=== PATIENT | female | born 1945 | race Asian ===

== ENCOUNTER → 2016-12-25 | Outpatient (REF) | payer MEDICARE ==
[~2016-12-25] MED LIST: CALC-136 PO; CALCIUM PO; COLLCAP2 PO; DOCU10ELUD PO; HYDR50TA8 OR; LIDO5DIS TD; LUTE6CAP2 PO; PERCOCET PO; TRAM50TA2; TRAM50TA2 OR; TYLE325T5 PO; VITAMINB PO; VITAMINC PO; Vitamin D3 PO; [UNRECOGNIZED DRUG - OTHER] PO
[2016-12-25 11:32] LABS: MEAN CORPUSCULAR HGB CONC 33.7 g/dl (32.0-36.5); WHITE BLOOD COUNT 8.6 K/mm3 (4.0-10.0)
[2016-12-25 12:01] LABS: ALBUMIN 3.8 GM/DL (3.2-5.2); ALBUMIN/GLOBULIN RATIO 1.15 (1.00-1.93); ALKALINE PHOSPHATASE 83 U/L (45-117); ALT/SGPT 33 U/L (12-78); ANION GAP 7 MEQ/L (8-16); AST/SGOT 15 U/L (15-37); BILIRUBIN,TOTAL 0.4 MG/DL (0.2-1.0); BLOOD UREA NITROGEN 15 MG/DL (7-18); CALCIUM LEVEL 8.6 MG/DL (8.8-10.2); CARBON DIOXIDE LEVEL 30 MEQ/L (21-32); CHLORIDE LEVEL 105 MEQ/L (98-107); CHOLESTEROL LEVEL 227 MG/DL (<200); CREATININE FOR GFR 0.52 MG/DL (0.55-1.02); GLOMERULAR FILTRATION RATE > 60.0 (>39); GLUCOSE, FASTING 75 MG/DL (83-110); POTASSIUM SERUM 4.2 MEQ/L (3.5-5.1); SODIUM LEVEL 142 MEQ/L (136-145); TOTAL PROTEIN 7.1 GM/DL (6.4-8.2); TRIGLYCERIDES LEVEL 89 MG/DL (<150)
== END ==
LOC: M SFHCCLAY 09:14
PROVIDERS: ATTEND Family Medicine
DX: E78.00 Pure hypercholesterolemia, unspecified (principal); Z85.3 Personal history of malignant neoplasm of breast

== ENCOUNTER → 2017-01-20 | Outpatient (REF) | payer MEDICARE | LOC: M SFHCCLAY 11:31 | PROVIDERS: ATTEND Family Medicine | DX: J45.909 Unspecified asthma, uncomplicated (principal); E78.00 Pure hypercholesterolemia, unspecified; M54.2 Cervicalgia; R53.83 Other fatigue ==

== ENCOUNTER → 2017-08-23 | Outpatient (CLI) | payer MEDICARE | LOC: M WHC 09:48 | DX: Z12.31 Encounter for screening mammogram for malignant neoplasm of breast (principal) | CPT/HCPCS: 77067 ==

== ENCOUNTER 2018-02-03 07:50 | Day surgery (SDC) | payer MEDICARE ==
[2018-02-03] MEDS: NS 1,000 ML IV (08:27)
[2018-02-03] MEDS ORDERED: PROPOFOL 200 MG/20 ML VIAL As Ordered (08:51)
[2018-02-03] MEDS ORDERED: LIDOCAINE 2% INJ 100 MG/5 ML SDV (FOR ANES.) As Ordered (08:51)
== END 2018-02-03 10:21 | disposition home or self-care (01) ==
LOC: M OPP 07:50
DX: Z12.11 Encounter for screening for malignant neoplasm of colon (principal); R01.1 Cardiac murmur, unspecified; L40.9 Psoriasis, unspecified; J45.909 Unspecified asthma, uncomplicated; Z85.3 Personal history of malignant neoplasm of breast; Z92.3 Personal history of irradiation; R12 Heartburn; Z78.0 Asymptomatic menopausal state; Z88.8 Allergy status to other drugs, medicaments and biological substances; Z79.899 Other long term (current) drug therapy
CPT/HCPCS: G0121

== ENCOUNTER → 2018-06-03 | Outpatient (CLI) | payer BC, MEDICARE | LOC: M CLY 14:57 | DX: M54.2 Cervicalgia (principal) | CPT/HCPCS: 72050 ==

== ENCOUNTER 2018-10-17 12:00 | Emergency (ER) | payer BC, MEDICARE ==
[~2018-10-17] VITALS: Ht 149.9 cm; Wt 50.0 kg
[~2018-10-17 12:00] MED LIST changes: +CITRTAB19 PO; +COLLCAP PO; +OMEG1CAP16 PO; +PROAAER10 INH; +PROBCAP4 PO; +VITA500T3 PO
[2018-10-17 13:47] LABS: HEMATOCRIT 40.2 % (36.0-47.0); HEMOGLOBIN 13.5 g/dl (12.0-15.5); MEAN CORPUSCULAR HGB CONC 33.6 g/dl (32.0-36.5); MEAN CORPUSCULAR VOLUME 92.4 fl (80.0-96.0); RED BLOOD COUNT 4.35 10^6/uL (4.00-5.40); WHITE BLOOD COUNT 12.8 10^3/uL (4.0-10.0)
[2018-10-17 13:48] LABS: BASO # 0.1 10^3/uL (0.0-0.2); BASO % 0.5 % (0.0-1.0); EOS # 0.1 10^3/uL (0.0-0.50); EOS % 0.9 % (0.0-3.0); LYMPH # 3.1 10^3/uL (1.5-4.5); LYMPH % 24.6 % (24.0-44.0); MONO # 1.1 10^3/uL (0.0-0.8); MONO % 8.5 % (0.0-5.0); NEUTROPHILS # 8.3 10^3/uL (1.8-7.7); NEUTROPHILS % 65.2 % (36.0-66.0); PLATELET COUNT, AUTOMATED 159 10^3/uL (150-450)
[2018-10-17 14:14] LABS: BLOOD UREA NITROGEN 22 MG/DL (7-18); C REACTIVE PROTEIN QUANTITATIV 8.12 MG/DL (0.00-0.30); CALCIUM LEVEL 8.6 MG/DL (8.8-10.2); CARBON DIOXIDE LEVEL 27 MEQ/L (21-32); CHLORIDE LEVEL 107 MEQ/L (98-107); CREATININE FOR GFR 0.51 MG/DL (0.55-1.30); GLOMERULAR FILTRATION RATE > 60.0 (>39); GLUCOSE, FASTING 82 MG/DL (70-100); POTASSIUM SERUM 3.9 MEQ/L (3.5-5.1); SODIUM LEVEL 142 MEQ/L (136-145)
--- NOTE | 2018-10-17 14:16 | REP ---
LEFT ELBOW: Four views of left elbow are performed. No fracture, dislocation, or intrinsic bone disease is seen. I do not see a significant joint effusion. There is soft tissue swelling posteriorly. Electronically Signed by Shant Hernandez MD 10/18/2018 10:14 A
--- NOTE | 2018-10-17 14:21 | REP ---
Left upper extremity duplex venous ultrasound: History: Left upper extremity pain and swelling. Findings: The left internal jugular, axillary, brachial, basilic, and cephalic veins are anechoic and compressible in the left upper extremity. Color flow imaging is homogeneous. Spectral Doppler interrogation is unremarkable. There is no evidence of left upper extremity venous thrombosis. Impression: Negative left upper extremity duplex venous ultrasound. No evidence of venous thrombosis. Electronically Signed by Rusty Davenport MD 10/17/2018 02:11 P
[2018-10-17] MEDS ORDERED: CLEO300C2 PO (14:29)
[2018-10-17 14:36] VITALS: BP 145/65
[2018-10-17 15:27] LABS: ERYTHROCYTE SEDIMENTATION RATE 30 mm/hr (0-30)
== END 2018-10-17 14:41 | disposition home or self-care (01) ==
LOC: M ED 12:00
DX: L03.114 Cellulitis of left upper limb (principal); M54.9 Dorsalgia, unspecified; Z85.3 Personal history of malignant neoplasm of breast; Z88.8 Allergy status to other drugs, medicaments and biological substances; Z79.899 Other long term (current) drug therapy

== ENCOUNTER → 2019-04-11 | Outpatient (REF) | payer MEDICARE ==
[~2019-04-11] MED LIST changes: +CLEO300C2 PO; +CYAN500T8 PO; -DOCU10ELUD PO; +DOCU5LIQ PO; +OXYC1TAB23 PO; -PERCOCET PO; -VITA500T3 PO
== END ==
LOC: M SFHCWAGY 11:21
PROVIDERS: ATTEND Nurse Practitioner Family
DX: Z12.4 Encounter for screening for malignant neoplasm of cervix (principal); N95.2 Postmenopausal atrophic vaginitis

== ENCOUNTER → 2019-04-11 | Outpatient (CLI) | payer MEDICARE ==
--- NOTE | 2019-04-11 13:20 | REP ---
BILATERAL SCREENING DIGITAL MAMMOGRAM WITH 3D TOMOSYNTHESIS: There are no palpable abnormalities or other breast complaints. The the patient states she had a clinical breast examination March,. The the patient states she performs self-breast examinations zero times per year. The patient had left breast cancer at age 65. The Tyrer Cuzick Score is: NA. Comparison is the 01/10/2014. The breasts are heterogeneously dense, which could obscure small masses. There is no dominant mass, micro calcific cluster or architectural distortion that would indicate malignancy. There are no additional findings on 3D tomosynthesiss. There is no change from the prior study. Impression: BIRADS/ACR category 1 mammogram. Negative. Recommendation: Routine annual screening mammography. Because of the increased breast density, annual adjunctive breast MRI in addition to screening mammography is recommended. These can be performed at alternating six month intervals. This mammogram was interpreted with the aid of a FDA approved computer-aided detection system. A. Negative mammogram reports should not delay biopsy if a dominant or clinically suspicious mass is present. B. Not all breast cancers are identified by mammography or tomosynthesis. C. Adenosis and dense breasts may obscure an underlying neoplasm. Patient letter M1 dense breasts. Electronically Signed by Shant Mendes MD 04/11/2019 01:11 P
--- NOTE | 2019-04-14 15:26 | DEXA ---
AP SPINE L1 - L4 0.843 -2.8 -1.1 LT FEMUR TOTAL 0.685 -2.6 -0.9 LT NECK 0.640 -2.9 -1.0 RT FEMUR TOTAL 0.666 -2.7 -1.1 RT NECK 0.625 -3.0 -1.2 TOTAL BODY TOTAL OTHER COMMENTS: There is osteoporosis of the spine and hips. The density of the spine has decreased 10.1% since 06/22/2005. The density of the left hip has decreased 14.6% since 06/22/2005. The density of the right hip has decreased 16.2% since 06/22/2005. FOLLOW-UP: Recommendation for the next bone density exam: 2 years. DANIELLE
== END ==
LOC: M WHC 10:40
PROVIDERS: ATTEND Nurse Practitioner Family
DX: Z12.31 Encounter for screening mammogram for malignant neoplasm of breast (principal); N95.9 Unspecified menopausal and perimenopausal disorder; Z85.3 Personal history of malignant neoplasm of breast

== ENCOUNTER → 2019-04-26 | Outpatient (REF) | payer MEDICARE ==
[2019-04-26 17:17] LABS: HEMATOCRIT 40.8 % (36.0-47.0); HEMOGLOBIN 13.5 g/dl (12.0-15.5); MEAN CORPUSCULAR HEMOGLOBIN 31.3 pg (27.0-33.0); MEAN CORPUSCULAR HGB CONC 33.1 g/dl (32.0-36.5); MEAN CORPUSCULAR VOLUME 94.7 fl (80.0-96.0); PLATELET COUNT, AUTOMATED 175 10^3/uL (150-450); RED BLOOD COUNT 4.31 10^6/uL (4.00-5.40); WHITE BLOOD COUNT 7.4 10^3/uL (4.0-10.0)
[2019-04-26 17:39] LABS: ALBUMIN 3.6 GM/DL (3.2-5.2); ALT/SGPT 32 U/L (12-78); BILIRUBIN,TOTAL 0.3 MG/DL (0.2-1.0); BLOOD UREA NITROGEN 23 MG/DL (7-18); C REACTIVE PROTEIN QUANTITATIV < 0.30 MG/DL (0.00-0.30); CALCIUM LEVEL 9.4 MG/DL (8.8-10.2); CARBON DIOXIDE LEVEL 31 MEQ/L (21-32); CHLORIDE LEVEL 103 MEQ/L (98-107); CHOLESTEROL LEVEL 217 MG/DL (<200); CHOLESTEROL RISK RATIO 2.972 (<5); CREATININE FOR GFR 0.66 MG/DL (0.55-1.30); GLOMERULAR FILTRATION RATE > 60.0 (>39); GLUCOSE, FASTING 101 MG/DL (70-100); HDL CHOLESTEROL 73 MG/DL (>40); LDL CHOLESTEROL 95 MG/DL (<100); NON-HDL-C 144 MG/DL; POTASSIUM SERUM 3.9 MEQ/L (3.5-5.1); SODIUM LEVEL 142 MEQ/L (136-145); THYROID STIMULATING HORMONE 0.552 uIU/ML (0.358-3.740); TOTAL PROTEIN 6.9 GM/DL (6.4-8.2); TRIGLYCERIDES LEVEL 244 MG/DL (<150)
[2019-04-26 17:40] LABS: TOTAL 25(OH) VITAMIN D 60.5 NG/ML (30.0-100.0)
[2019-04-26 17:50] LABS: ERYTHROCYTE SEDIMENTATION RATE 16 mm/hr (0-30)
[2019-04-29 00:06] LABS: ANA (HEP2) Negative (.); CYCLIC CITRULLINATED PEPTIDE 16 units (0-19)
== END ==
LOC: M SFHCCLAY 13:42
PROVIDERS: ATTEND Family Medicine
DX: B35.1 Tinea unguium (principal); M81.0 Age-related osteoporosis without current pathological fracture; E78.00 Pure hypercholesterolemia, unspecified; J45.20 Mild intermittent asthma, uncomplicated; M62.838 Other muscle spasm; M25.50 Pain in unspecified joint

== ENCOUNTER → 2020-11-19 | Outpatient (CLI) | payer OTHER ==
[~2020-11-19] MED LIST changes: +CYAN500T14 PO; -CYAN500T8 PO
--- NOTE | 2020-11-19 15:34 | REP ---
INDICATION: M54.31, M54.32, RIGHT AND LEFT SCIATICA PAIN. COMPARISON: None. TECHNIQUE: Plain film of the lumbar spine includes AP lateral and oblique views. FINDINGS: There is fusion of L5 and S1 for S1 spondylolisthesis. The study does not include a true lateral film at the level of the fusion. There is no evidence of hardware loosening or hardware failure. No evidence of fracture. IMPRESSION: L5-S1 fusion with hardware for spondylolisthesis. <Electronically signed by Marcos Chapman > 11/19/20 [id number]
--- NOTE | 2020-11-20 03:04 | REP ---
INDICATION: M25.561, PAIN RIGHT KNEE COMPARISON: None. TECHNIQUE: AP, lateral, bilateral oblique and sunrise views. FINDINGS: The osseous structures and joint spaces are intact and age-appropriate. There is no evidence for acute fracture or dislocation. Relatively mild subchondral sclerosis along the medial tibial plateau and posterior patella with associated elements of mild joint space narrowing are noted. Lateral view demonstrates fraying and small calcification along the insertion to quadriceps tendon. No obvious acute fracture or dislocation. No definite effusion. 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 IMPRESSION: Relatively mild arthritic changes given the patient's age. No acute fracture or dislocation. <Electronically signed by Tye Mendoza > 11/20/20 [id number]
== END ==
LOC: M CLY 14:24
PROVIDERS: ATTEND Family Medicine
DX: M54.31 Sciatica, right side (principal); M54.32 Sciatica, left side; M25.561 Pain in right knee; Z98.1 Arthrodesis status; M43.16 Spondylolisthesis, lumbar region

== ENCOUNTER → 2020-11-19 | Outpatient (REF) | payer OTHER ==
[2020-11-20 11:30] LABS: BASO # 0.1 10^3/uL (0.0-0.2); EOS # 0.2 10^3/uL (0.0-0.5); EOS % 2.1 % (0.0-3.0); HEMATOCRIT 43.3 % (36.0-47.0); HEMOGLOBIN 14.1 g/dl (12.0-15.5); LYMPH # 2.9 10^3/uL (1.5-5.0); LYMPH % 31.9 % (24.0-44.0); MEAN CORPUSCULAR HEMOGLOBIN 30.9 pg (27.0-33.0); MEAN CORPUSCULAR HGB CONC 32.6 g/dl (32.0-36.5); MONO # 0.7 10^3/uL (0.0-0.8); MONO % 7.7 % (2.0-8.0); NEUTROPHILS # 5.2 10^3/uL (1.5-8.5); NEUTROPHILS % 57.1 % (36.0-66.0); PLATELET COUNT, AUTOMATED 196 10^3/uL (150-450); RED BLOOD COUNT 4.56 10^6/uL (4.00-5.40); WHITE BLOOD COUNT 9.2 10^3/uL (4.0-10.0)
[2020-11-20 12:13] LABS: ALT/SGPT 60 U/L (12-78); BILIRUBIN,TOTAL 0.3 MG/DL (0.2-1.0); BLOOD UREA NITROGEN 21 MG/DL (7-18); CALCIUM LEVEL 9.6 MG/DL (8.8-10.2); CARBON DIOXIDE LEVEL 31 MEQ/L (21-32); CHLORIDE LEVEL 106 MEQ/L (98-107); CHOLESTEROL LEVEL 244 MG/DL (<200); CHOLESTEROL RISK RATIO 2.939 (<5); CREATININE FOR GFR 0.55 MG/DL (0.55-1.30); GLOMERULAR FILTRATION RATE > 60.0 (>39); GLUCOSE, FASTING 79 MG/DL (70-100); HDL CHOLESTEROL 83 MG/DL (>40); LDL CHOLESTEROL 138 MG/DL (<100); NON-HDL-C 161 MG/DL; POTASSIUM SERUM 5.1 MEQ/L (3.5-5.1); SODIUM LEVEL 140 MEQ/L (136-145); TOTAL PROTEIN 7.7 GM/DL (6.4-8.2); TRIGLYCERIDES LEVEL 116 MG/DL (<150)
[2020-11-20 12:14] LABS: ALBUMIN 4.1 GM/DL (3.2-5.2)
[2020-11-20 12:16] LABS: VITAMIN B12 LEVEL 870 PG/ML (247-911)
== END ==
LOC: M SFHCCLAY 14:14
PROVIDERS: ATTEND Family Medicine
DX: M54.31 Sciatica, right side (principal); M54.32 Sciatica, left side; G89.29 Other chronic pain; M25.561 Pain in right knee; M81.0 Age-related osteoporosis without current pathological fracture; E78.00 Pure hypercholesterolemia, unspecified

== ENCOUNTER → 2021-05-08 | Outpatient (CLI) | payer OTHER ==
--- NOTE | 2021-05-08 12:07 | REPMRS ---
Patient History The patient states she had a clinical breast exam in 2020. Family history of breast cancer at age 62 in sister, prostate cancer at age 50 or over in brother. Malignant lumpectomy of the left breast, November 10, 2010. Radiation therapy. No breast complaints today Patient signed the MRS sheet Both Moderna vaccines were in the right arm, not sure of dates Priors on PACS Patient Identification Verified Digital Woman Screen Mammo: May 08, 2021 - Exam #: [id number] Bilateral CC and MLO view(s) were taken. Technologist: Sadia Rivera, Technologist Prior study comparison: April 11, 2019, bilateral digital woman screen mammo performed at [facility]. August 23, 2017, digital woman screen mammo performed at [facility]. FINDINGS: The breast tissue is heterogeneously dense. This may lower the sensitivity of mammography. Screening. This patient?s lifetime risk for the development of invasive breast cancer can?t be calculated due to her age (less than 20 or greater than 85 years) or a prior history of in situ or invasive breast cancer. Digital screening (2D) mammography was performed bilaterally. Additionally, breast tomosynthesis (3D mammography) was performed bilaterally in the CC and MLO projections. Today's exam was compared to the prior exam/exams. By history, the patient has no complaints of a palpable breast abnormality or other significant breast complaints. The Volpara volumetric breast density category is C, the breasts are heterogenously dense which may obscure small masses. The patient is status post left lumpectomy/chemo radiation therapy due to breast carcinoma. The breasts are unchanged in size and shape. There are no bebe-areas of internal architectural distortion. There are no bebe-soft tissue densities or areas of spiculation. There is unchanged post radiation skin thickening. IMPRESSION: BI-RADS Category 2- Benign Findings. There is no evidence of malignant alteration of the breasts. Routine bilateral screening mammogram recommended at its regularly scheduled annual interval. This mammogram was read with the assistance of [employer],an FDA approved computer aided detection system for mammography. Negative x-ray reports should not delay surgical consultation if a dominant or clinically suspicious mass is present. Not all breast cancers can be identified by mammography. Therefore, we recommend that you continue to perform regular breast self-examination and physical examination and then promptly contact your physician of any concerns or changes. Adenosis and dense breasts may obscure an underlying neoplasm. No significant changes when compared with prior studies. Assessment: BI-RADS/ACR category 2 mammogram. Benign Findings. Recommendation Routine screening mammogram of both breasts in 1 year. Electronically Signed By: Ishan Mayer MD 05/08/21 [id number]
== END ==
LOC: M WHC 10:40
PROVIDERS: ATTEND Nurse Practitioner Women's Health
DX: Z01.419 Encounter for gynecological examination (general) (routine) without abnormal findings (principal); Z12.31 Encounter for screening mammogram for malignant neoplasm of breast; Z85.3 Personal history of malignant neoplasm of breast; M81.0 Age-related osteoporosis without current pathological fracture
CPT/HCPCS: 77063; 77067; G0101

== ENCOUNTER → 2022-03-18 | Outpatient (REF) | payer OTHER | LOC: M SFHCCLAY 10:03 | PROVIDERS: ATTEND Family Medicine | DX: E78.00 Pure hypercholesterolemia, unspecified (principal); R23.3 Spontaneous ecchymoses; J45.20 Mild intermittent asthma, uncomplicated; M81.0 Age-related osteoporosis without current pathological fracture ==

== ENCOUNTER → 2022-03-22 | Outpatient (CLI) | payer MEDICARE ==
[2022-03-22 09:12] LABS: HEMATOCRIT 43.4 % (36.0-47.0); HEMOGLOBIN 14.3 g/dl (12.0-15.5); MEAN CORPUSCULAR HEMOGLOBIN 31.3 pg (27.0-33.0); MEAN CORPUSCULAR HGB CONC 32.9 g/dl (32.0-36.5); PLATELET COUNT, AUTOMATED 171 10^3/uL (150-450); RED BLOOD COUNT 4.57 10^6/uL (4.00-5.40); WHITE BLOOD COUNT 5.4 10^3/uL (4.0-10.0)
[2022-03-22 09:20] LABS: INR 0.9; PARTIAL THROMBOPLASTIN TIME 26.6 SECONDS (25.9-37.0); PROTHROMBIN TIME 12.6 SECONDS (12.7-14.5)
[2022-03-22 09:47] LABS: ALBUMIN 3.4 GM/DL (3.2-5.2); ALT/SGPT 23 U/L (12-78); BILIRUBIN,TOTAL 0.3 MG/DL (0.2-1.0); BLOOD UREA NITROGEN 15 MG/DL (7-18); CALCIUM LEVEL 9.1 MG/DL (8.8-10.2); CARBON DIOXIDE LEVEL 33 MEQ/L (21-32); CHLORIDE LEVEL 106 MEQ/L (98-107); CHOLESTEROL LEVEL 220 MG/DL (<200); CREATININE FOR GFR 0.56 MG/DL (0.55-1.30); GLOMERULAR FILTRATION RATE > 60.0 (>39); GLUCOSE, FASTING 81 MG/DL (70-100); HDL CHOLESTEROL 78 MG/DL (>40); IRON (FE) 97 UG/DL (50-170); LDL CHOLESTEROL 130 MG/DL (<100); NON-HDL-C 142 MG/DL; PERCENT SATURATION 31.6 % (13.2-45.0); SODIUM LEVEL 142 MEQ/L (136-145); TOTAL IRON BINDING CAPACITY 307 UG/DL (250-450); TOTAL PROTEIN 6.8 GM/DL (6.4-8.2); TRIGLYCERIDES LEVEL 58 MG/DL (<150)
[2022-03-23 12:20] LABS: TOTAL 25(OH) VITAMIN D 45.4 NG/ML (30.0-100.0)
== END ==
LOC: M LAB 08:36
PROVIDERS: ATTEND Family Medicine
DX: E78.00 Pure hypercholesterolemia, unspecified (principal); R23.3 Spontaneous ecchymoses; J45.20 Mild intermittent asthma, uncomplicated; M81.0 Age-related osteoporosis without current pathological fracture

== ENCOUNTER 2022-06-14 13:04 | Emergency (ER) | payer MEDICARE ==
[~2022-06-14] VITALS: Ht 149.9 cm; Wt 51.9 kg
[2022-06-14] MEDS ORDERED: MECL-86 (13:13)
[2022-06-14 15:40] LABS: BASO # 0.1 10^3/uL (0.0-0.2); BASO % 0.8 % (0.0-1.0); EOS # 0.1 10^3/uL (0.0-0.5); HEMATOCRIT 40.9 % (36.0-47.0); HEMOGLOBIN 13.2 g/dl (12.0-15.5); LYMPH % 37.8 % (24.0-44.0); MEAN CORPUSCULAR HEMOGLOBIN 30.7 pg (27.0-33.0); MEAN CORPUSCULAR HGB CONC 32.3 g/dl (32.0-36.5); MEAN CORPUSCULAR VOLUME 95.1 fl (80.0-96.0); MONO # 0.6 10^3/uL (0.0-0.8); MONO % 8.1 % (2.0-8.0); NEUTROPHILS # 4.1 10^3/uL (1.5-8.5); NEUTROPHILS % 52.2 % (36.0-66.0); PLATELET COUNT, AUTOMATED 173 10^3/uL (150-450); WHITE BLOOD COUNT 7.9 10^3/uL (4.0-10.0)
[2022-06-14 16:14] LABS: ALBUMIN 3.7 GM/DL (3.2-5.2); ALT/SGPT 28 U/L (12-78); BILIRUBIN,DIRECT < 0.1 MG/DL (0.0-0.2); BILIRUBIN,TOTAL 0.3 MG/DL (0.2-1.0); BLOOD UREA NITROGEN 16 MG/DL (7-18); CALCIUM LEVEL 9.2 MG/DL (8.8-10.2); CARBON DIOXIDE LEVEL 32 MEQ/L (21-32); CHLORIDE LEVEL 104 MEQ/L (98-107); CK-MB VALUE MASS < 1.0 NG/ML (<3.6); CPK CREATINE PHOSPHOKINASE 77 U/L (26-192); CREATININE FOR GFR 0.57 MG/DL (0.55-1.30); GLOMERULAR FILTRATION RATE > 60.0 (>39); GLUCOSE, FASTING 90 MG/DL (70-100); LIPASE 157 U/L (73-393); POTASSIUM SERUM 3.5 MEQ/L (3.5-5.1); SODIUM LEVEL 140 MEQ/L (136-145); TOTAL PROTEIN 7.4 GM/DL (6.4-8.2)
[2022-06-14] MEDS ORDERED: ASPE4PAD TOP (17:47)
[2022-06-14 17:54] VITALS: BP 165/76
== END 2022-06-14 17:54 | disposition home or self-care (01) ==
LOC: M ED 13:04
DX: R07.89 Other chest pain (principal); K59.00 Constipation, unspecified; N85.2 Hypertrophy of uterus; N83.202 Unspecified ovarian cyst, left side; Z79.899 Other long term (current) drug therapy

== ENCOUNTER → 2022-12-04 | Outpatient (REF) | payer MEDICARE ==
[~2022-12-04] MED LIST changes: +ASPE4PAD TOP; +MECL-86
[2022-12-04 18:11] LABS: BASO # 0.1 10^3/uL (0.0-0.2); EOS # 0.1 10^3/uL (0.0-0.5); EOS % 1.3 % (0.0-3.0); HEMATOCRIT 42.7 % (36.0-47.0); HEMOGLOBIN 13.7 g/dl (12.0-15.5); LYMPH # 2.3 10^3/uL (1.5-5.0); LYMPH % 27.8 % (24.0-44.0); MEAN CORPUSCULAR HEMOGLOBIN 30.9 pg (27.0-33.0); MEAN CORPUSCULAR HGB CONC 32.1 g/dl (32.0-36.5); MEAN CORPUSCULAR VOLUME 96.2 fl (80.0-96.0); MONO # 0.6 10^3/uL (0.0-0.8); MONO % 6.6 % (2.0-8.0); NEUTROPHILS # 5.2 10^3/uL (1.5-8.5); NEUTROPHILS % 63.2 % (36.0-66.0); PLATELET COUNT, AUTOMATED 215 10^3/uL (150-450); RED BLOOD COUNT 4.44 10^6/uL (4.00-5.40); WHITE BLOOD COUNT 8.3 10^3/uL (4.0-10.0)
[2022-12-04 18:14] LABS: ALBUMIN 3.8 G/DL (3.2-5.2); ALKALINE PHOSPHATASE 106 U/L (46-116); ALT/SGPT 56 U/L (7.0-40); AST/SGOT 28 U/L (<34); BILIRUBIN,TOTAL 0.6 MG/DL (0.3-1.2); BLOOD UREA NITROGEN 17 MG/DL (9-23); CALCIUM LEVEL 9.3 MG/DL (8.3-10.6); CARBON DIOXIDE LEVEL 31 MMOL/L (20-31); CHLORIDE LEVEL 103 MMOL/L (98-107); CREATININE FOR GFR 0.53 MG/DL (0.55-1.30); GLOMERULAR FILTRATION RATE > 60.0 (>39); GLUCOSE, FASTING 82 MG/DL (74-106); PTH INTACT 52.9 PG/ML (18.5-88.0); SODIUM LEVEL 140 MMOL/L (136-145); TOTAL PROTEIN 7.6 G/DL (5.7-8.2)
[2022-12-04 18:42] LABS: ERYTHROCYTE SEDIMENTATION RATE 44 mm/hr (0-30)
== END ==
LOC: M SFHCCLAY 09:48
PROVIDERS: ATTEND Family Medicine
DX: M89.8X9 Other specified disorders of bone, unspecified site (principal)

== ENCOUNTER → 2022-12-04 | Outpatient (CLI) | payer MEDICARE | LOC: M CLY 10:16 | PROVIDERS: ATTEND Family Medicine | DX: M89.8X9 Other specified disorders of bone, unspecified site (principal) ==

== ENCOUNTER 2022-12-30 12:30 | Emergency (ER) | payer MEDICARE ==
[~2022-12-30] VITALS: Ht 149.9 cm; Wt 50.9 kg
[2022-12-30 13:53] LABS: BASO # 0.1 10^3/uL (0.0-0.2); BASO % 0.6 % (0.0-1.0); EOS # 0.1 10^3/uL (0.0-0.5); HEMATOCRIT 41.5 % (36.0-47.0); HEMOGLOBIN 13.5 g/dl (12.0-15.5); LYMPH # 2.3 10^3/uL (1.5-5.0); LYMPH % 26.3 % (24.0-44.0); MEAN CORPUSCULAR HGB CONC 32.5 g/dl (32.0-36.5); MEAN CORPUSCULAR VOLUME 95.2 fl (80.0-96.0); MONO # 0.6 10^3/uL (0.0-0.8); MONO % 6.6 % (2.0-8.0); NEUTROPHILS # 5.8 10^3/uL (1.5-8.5); NEUTROPHILS % 65.2 % (36.0-66.0); PLATELET COUNT, AUTOMATED 221 10^3/uL (150-450); RED BLOOD COUNT 4.36 10^6/uL (4.00-5.40); WHITE BLOOD COUNT 8.9 10^3/uL (4.0-10.0)
[2022-12-30 14:14] LABS: LIPASE 30 U/L (12-53)
[2022-12-30 14:17] LABS: ALBUMIN 3.5 G/DL (3.2-5.2); ALKALINE PHOSPHATASE 121 U/L (46-116); ALT/SGPT 43 U/L (7.0-40); AST/SGOT 29 U/L (<34); BILIRUBIN,DIRECT 0.1 MG/DL (<0.4); BILIRUBIN,TOTAL 0.5 MG/DL (0.3-1.2); BLOOD UREA NITROGEN 14 MG/DL (9-23); CALCIUM LEVEL 9.3 MG/DL (8.3-10.6); CARBON DIOXIDE LEVEL 30 MMOL/L (20-31); CHLORIDE LEVEL 107 MMOL/L (98-107); CREATININE FOR GFR 0.53 MG/DL (0.55-1.30); GLOMERULAR FILTRATION RATE > 60.0 (>39); GLUCOSE, FASTING 81 MG/DL (74-106); POTASSIUM SERUM 4.2 MMOL/L (3.5-5.1); SODIUM LEVEL 143 MMOL/L (136-145)
[2022-12-30] MEDS ORDERED: methocarbamoL 500 MG TAB PO ONE (16:35)
[2022-12-30] MEDS ORDERED: ISOVUE-370 76% 100ML VIAL As Ordered ONE (16:37)
[2022-12-30 17:27] LABS: CK-MB VALUE MASS < 1.0 NG/ML (<3.6)
[2022-12-30 17:28] LABS: CPK CREATINE PHOSPHOKINASE 63 U/L (34-145); MB/CK RELATIVE INDEX 1.58 (< OR =4)
[2022-12-30] MEDS ORDERED: TRAM50TA2 PO (18:38)
[2022-12-30 18:51] VITALS: BP 182/80
== END 2022-12-30 18:53 | disposition home or self-care (01) ==
LOC: M ED 12:30
DX: S32.040A Wedge compression fracture of fourth lumbar vertebra, initial encounter for closed fracture (principal); C79.51 Secondary malignant neoplasm of bone; N28.1 Cyst of kidney, acquired; D25.9 Leiomyoma of uterus, unspecified; I45.10 Unspecified right bundle-branch block; M54.50 Low back pain, unspecified; Z88.6 Allergy status to analgesic agent; Z85.3 Personal history of malignant neoplasm of breast; Z79.899 Other long term (current) drug therapy
CPT/HCPCS: 36415; 71260; 74177; 80048; 80076; 81001; 82550; 82553; 83690; 84484; 85025; 86304; 93005; 99284; Q9967

== ENCOUNTER → 2023-01-01 | Outpatient (REF) | payer MEDICARE ==
[~2023-01-01] MED LIST changes: +TRAM50TA2 PO
[2023-01-01 22:22] LABS: CA19-9 TUMOR MARKER,CARBOHYDRA < 1.2 U/ML (<35.0)
== END ==
LOC: M SFHCCLAY 13:50
PROVIDERS: ATTEND Family Medicine
DX: C79.51 Secondary malignant neoplasm of bone (principal)

== ENCOUNTER → 2023-01-05 | Outpatient (CLI) | payer MEDICARE | LOC: M WHC 13:20 | PROVIDERS: ATTEND Family Medicine | DX: N94.89 Other specified conditions associated with female genital organs and menstrual cycle (principal); N85.2 Hypertrophy of uterus ==

== ENCOUNTER → 2023-01-06 | Outpatient (CLI) | payer MEDICARE | LOC: M ONCR 14:35 | PROVIDERS: ATTEND General Practice | DX: M85.88 Other specified disorders of bone density and structure, other site (principal); Z85.3 Personal history of malignant neoplasm of breast; Z92.3 Personal history of irradiation; R07.81 Pleurodynia; Z71.2 Person consulting for explanation of examination or test findings; Z79.899 Other long term (current) drug therapy; Z88.8 Allergy status to other drugs, medicaments and biological substances; Z80.3 Family history of malignant neoplasm of breast; Z80.42 Family history of malignant neoplasm of prostate; Z98.890 Other specified postprocedural states ==

== ENCOUNTER → 2023-01-25 | Outpatient (CLI) | payer MEDICARE ==
[~2023-01-25] MED LIST changes: +LIDOCAINE 1% MDV 20ML VIAL As Ordered ONE
[2023-01-25 07:40] VITALS: TEMP 97.5
[2023-01-25 10:30] VITALS: BP 152/74; O2SAT 98
== END ==
LOC: M IRPRO 07:33
PROVIDERS: ATTEND Family Medicine
DX: C79.51 Secondary malignant neoplasm of bone (principal); C50.919 Malignant neoplasm of unspecified site of unspecified female breast

== ENCOUNTER 2023-02-08 14:01 | Outpatient (RCR) | payer MEDICARE ==
[~2023-02-08 14:01] MED LIST changes: -LIDOCAINE 1% MDV 20ML VIAL As Ordered ONE; +OMEP-173 PO; +PRED20TA PO
[2023-02-08] MEDS ORDERED: ANAS1TAB2 PO (14:07)
== END 2023-02-12 ==
LOC: M ONCR 14:01
PROVIDERS: ATTEND General Practice
DX: C79.51 Secondary malignant neoplasm of bone (principal)

== ENCOUNTER 2023-03-03 12:40 | Outpatient (RCR) | payer MEDICARE ==
[~2023-03-03 12:40] MED LIST changes: +ANAS1TAB2 PO
[2023-03-18] MEDS ORDERED: ANAS1TAB2 PO (13:51)
== END 2023-03-15 ==
LOC: M ONCR 12:40
PROVIDERS: ATTEND General Practice
DX: C79.51 Secondary malignant neoplasm of bone (principal)

== ENCOUNTER → 2023-03-22 | Outpatient (CLI) | payer MEDICARE | LOC: M PLARAD 09:35 | PROVIDERS: ATTEND Specialist | DX: C79.51 Secondary malignant neoplasm of bone (principal) | CPT/HCPCS: 78815; A9552 ==

== ENCOUNTER → 2024-05-18 | Outpatient (CLI) | payer MEDICARE ==
[~2024-05-18] MED LIST changes: +LETR2.5T2 PO; +PROHANCE 279.3MG/ML 5ML VIAL ONE; +VERZ150T PO
== END ==
LOC: M PLAIMG 04-10 08:41
PROVIDERS: ATTEND Family Medicine
DX: C79.51 Secondary malignant neoplasm of bone (principal); Z85.3 Personal history of malignant neoplasm of breast; M54.50 Low back pain, unspecified; M47.816 Spondylosis without myelopathy or radiculopathy, lumbar region; M48.061 Spinal stenosis, lumbar region without neurogenic claudication
CPT/HCPCS: 72158; A9576

== ENCOUNTER → 2024-10-12 | Outpatient (CLI) | payer MEDICARE ==
[~2024-10-12] MED LIST changes: +ACYC1TAB PO; +PRED5PAK PO; -PROHANCE 279.3MG/ML 5ML VIAL ONE
== END ==
LOC: M CLY 10:13
PROVIDERS: ATTEND Nurse Practitioner Family
DX: M79.604 Pain in right leg (principal)

== ENCOUNTER → 2024-11-07 | Outpatient (CLI) | payer MEDICARE ==
[2024-11-07 12:00] LABS: BASO # 0.1 10^3/uL (0.0-0.2); BASO % 0.6 % (0.0-1.0); EOS # 0.1 10^3/uL (0.0-0.5); EOS % 0.5 % (0.0-3.0); HEMATOCRIT 42.1 % (36.0-47.0); HEMOGLOBIN 13.6 g/dl (12.0-15.5); LYMPH # 2.4 10^3/uL (1.5-5.0); LYMPH % 24.3 % (24.0-44.0); MEAN CORPUSCULAR HEMOGLOBIN 30.7 pg (27.0-33.0); MEAN CORPUSCULAR HGB CONC 32.3 g/dl (32.0-36.5); MONO # 0.6 10^3/uL (0.0-0.8); MONO % 6.6 % (2.0-8.0); NEUTROPHILS # 6.5 10^3/uL (1.5-8.5); NEUTROPHILS % 67.6 % (36.0-66.0); PLATELET COUNT, AUTOMATED 204 10^3/uL (150-450); RED BLOOD COUNT 4.43 10^6/uL (4.00-5.40); WHITE BLOOD COUNT 9.7 10^3/uL (4.0-10.0)
[2024-11-07 12:19] LABS: ALBUMIN 3.8 G/DL (3.2-5.2); ALKALINE PHOSPHATASE 102 U/L (35-104); ALT/SGPT 25 U/L (7.0-40); AST/SGOT 20 U/L (<34); BILIRUBIN,TOTAL 0.5 MG/DL (0.3-1.2); BLOOD UREA NITROGEN 21 MG/DL (9-23); CALCIUM LEVEL 9.3 MG/DL (8.3-10.6); CARBON DIOXIDE LEVEL 30 MMOL/L (20-31); CHLORIDE LEVEL 106 MMOL/L (98-107); CHOLESTEROL LEVEL 226 MG/DL (<200); CHOLESTEROL RISK RATIO 2.83 (<5); CREATININE FOR GFR 0.54 MG/DL (0.55-1.30); GLOMERULAR FILTRATION RATE > 60.0 (>39); GLUCOSE, FASTING 76 MG/DL (74-106); HDL CHOLESTEROL 79.6 MG/DL (>40); LDL CHOLESTEROL 128.2 MG/DL (<100); NON-HDL-C 146.4 MG/DL; POTASSIUM SERUM 3.7 MMOL/L (3.5-5.1); SODIUM LEVEL 143 MMOL/L (136-145); THYROID STIMULATING HORMONE 0.748 uIU/ML (0.55-4.78); TOTAL PROTEIN 7.5 G/DL (5.7-8.2); TRIGLYCERIDES LEVEL 91 MG/DL (<150)
[2024-11-07 12:21] LABS: FREE T4 1.17 NG/DL (0.89-1.76)
[2024-11-07 13:25] LABS: HEMOGLOBIN A1c 4.9 % (4.0-6.0)
== END ==
LOC: M RAD 10:00
PROVIDERS: ATTEND Nurse Practitioner Family
DX: I83.893 Varicose veins of bilateral lower extremities with other complications (principal); M79.604 Pain in right leg; C79.51 Secondary malignant neoplasm of bone; J45.20 Mild intermittent asthma, uncomplicated; Z13.220 Encounter for screening for lipoid disorders; Z13.1 Encounter for screening for diabetes mellitus; I87.8 Other specified disorders of veins; Z79.899 Other long term (current) drug therapy

== ENCOUNTER → 2025-04-18 | Outpatient (CLI) | payer MEDICARE ==
[~2025-04-18] MED LIST changes: +ACYC-438 PO; -ACYC1TAB PO
== END ==
LOC: M PLAIMG 10:09
PROVIDERS: ATTEND Physician Assistant
DX: M47.26 Other spondylosis with radiculopathy, lumbar region (principal); M48.061 Spinal stenosis, lumbar region without neurogenic claudication

== ENCOUNTER → 2025-05-29 | Outpatient (CLI) | payer MEDICARE ==
[~2025-05-29] MED LIST changes: +ISOVUE-370 76% 100 ML VIAL As Ordered ONE
== END ==
LOC: M RAD 09:36
DX: C50.919 Malignant neoplasm of unspecified site of unspecified female breast (principal)
CPT/HCPCS: 71260; 74177; Q9967